=== PATIENT | female | born 2000 | race Caucasian/White ===

== ENCOUNTER 2019-11-28 17:12 | Emergency (ER) | payer OTHER ==
[~2019-11-28] VITALS: Ht 167.6 cm; Wt 95.3 kg
--- NOTE | 2019-11-28 17:13 | NUR ---
BIBA TAKEN TO BED 6
[2019-11-28] MEDS ORDERED: ONDANSETRON 4 MG ODT PO ONE (17:15)
[2019-11-28 17:20] VITALS: BP 125/80
--- NOTE | 2019-11-28 17:20 | NUR ---
BIBA S/P OVERDOSE ON 15MG OF PERCOCET. PT STATES "I WAS JUST TRYING TO GET HIGH". DENIES SI/HI. PER EMS, PT WAS UNRESPONSIVE W/ PINPOINT PUPILS UPON ARRIVAL. PT WAS GIVEN 0.4MG INTRANASAL ZOFRAN AND WOKE UP. A&O X4, GCS 15/15 AT THIS TIME. VSS. PT REPORTS THAT THE PERCOCET WAS GIVEN TO HER BY A FRIEND. DENIES USE OF OTHER DRUGS/ETOH. PT IS NAUSEOUS AND VOMITING AT THIS TIME. PT PLACED ON BEDSIDE [employer] REPRESENTATIVE AT THIS TIME. BED IN LOW POSITION, SIDE RAIL UP X1.
--- NOTE | 2019-11-28 17:25 | NUR ---
ERMD EVALUATED AT BEDSIDE
--- NOTE | 2019-11-28 18:12 | NUR ---
PT RESTING IN BED, NO NEW NEEDS AT THIS TIME. VSS
--- NOTE | 2019-11-28 18:40 | NUR ---
PT AMBULATED TO RESTROOM WITH STEADY GAIT
[2019-11-28 19:22] VITALS: BP 125/80
--- NOTE | 2019-11-28 19:23 | NUR ---
Patient discharged with v/s stable. Written and verbal after care instructions given and explained. Patient alert, oriented and verbalized understanding of instructions. Ambulatory with steady gait. All questions addressed prior to discharge. ID band removed. Patient advised to follow up with PMD. Rx of NARCAN, ZOFRAN given. Patient educated on indication of medication including possible reaction and side effects. Opportunity to ask questions provided and answered.
== END 2019-11-28 19:23 | disposition home or self-care (01) ==
LOC: MED 17:12
DX: T40.2X1A Poisoning by other opioids, accidental (unintentional), initial encounter (principal); Z79.899 Other long term (current) drug therapy; Y92.89 Other specified places as the place of occurrence of the external cause
CPT/HCPCS: 99283; Q0162